=== PATIENT | male | born 1990 | race Caucasian/White ===

== ENCOUNTER 2017-08-17 23:41 | Emergency (ER) | payer SELFPAY ==
--- NOTE | 2017-08-18 01:32 | ER Document Report ---
ED Medical Screen (RME) - General Chief Complaint: Chest Pain Stated Complaint: CHEST PAIN Time Seen by Provider: 08/18/17 01:30 Mode of Arrival: Ambulatory Information source: Patient Notes: Patient is a 27-year-old male who presents to the ER today for 3 days of right chest pain, worse with deep breathing. Patient states it is gotten worse he feels like he can only take shallow breaths. He has no history of asthma, cardiac disease. He denies any nausea or vomiting. TRAVEL OUTSIDE OF THE [place] IN LAST 30 DAYS: No - Related Data Allergies/Adverse Reactions: No Known Allergies Allergy (Verified 11/01/15 12:53) Past Medical History - General Information source: Patient - Immunizations Immunizations up to date: Yes Hx Diphtheria, Pertussis, Tetanus Vaccination: No Review of Systems - Review of Systems Cardiovascular: See HPI Respiratory: See HPI Physical Exam - Vital signs Vitals: Temp Pulse Resp BP Pulse Ox 97.9 F 76 18 156/90 H 97 08/17/17 23:43 08/17/17 23:43 08/17/17 23:43 08/17/17 23:43 08/17/17 23:43 - Notes Notes: PHYSICAL EXAMINATION: GENERAL: Well-appearing and in no acute distress. LUNGS: CTAB and equal. No wheezes rales or rhonchi. HEART: Regular rate and rhythm without murmurs Course - Vital Signs Vital signs: Temp Pulse Resp BP Pulse Ox 97.9 F 76 18 156/90 H 97 08/17/17 23:43 08/17/17 23:43 08/17/17 23:43 08/17/17 23:43 08/17/17 23:43
[2017-08-18 02:09] LABS: ABSOLUTE BASOPHILS # (AUTO) 0.1 10^3/uL (0.0-0.2); ABSOLUTE EOSINOPHILS # (AUTO) 0.6 10^3/uL (0.0-0.6); ABSOLUTE LYMPHOCYTES (AUTO) 2.6 10^3/uL (0.5-4.7); ABSOLUTE MONOCYTES (AUTO) 0.8 10^3/uL (0.1-1.4); ABSOLUTE NEUT (AUTO) 4.5 10^3/uL (1.7-8.2); BASOPHILS % (AUTO) 0.8 % (0-2); EOSINOPHILS % (AUTO) 7.4 % (0-6); HEMATOCRIT 43.3 % (37.9-51.0); HEMOGLOBIN 14.9 g/dL (13.5-17.0); LYMPHOCYTES % (AUTO) 30.4 % (13-45); MEAN CORPUSCULAR HGB CONC 34.5 g/dL (32.0-36.0); MEAN CORPUSCULAR VOLUME 90 fl (80-97); MONOCYTES % (AUTO) 9.7 % (3-13); PLATELET COUNT 270 10^3/uL (150-450); RED BLOOD COUNT 4.82 10^6/uL (4.35-5.55); RED CELL DISTRIBUTION WIDTH 13.4 % (11.5-14.0); SEGMENTED NEUTROPHILS % (AUTO) 51.7 % (42-78); TOTAL CELLS COUNTED % (AUTO) 100 %; WHITE BLOOD COUNT 8.6 10^3/uL (4.0-10.5)
--- NOTE | 2017-08-18 02:13 | RADIOLOGY REPORT (SQ) ---
EXAM DESCRIPTION: CHEST PA/LAT COMPLETED DATE/TIME: 08/18/2017 2:00 am REASON FOR STUDY: right side cp, worse with deep breathing COMPARISON: None. EXAM PARAMETERS: NUMBER OF VIEWS: two views TECHNIQUE: Digital Frontal and Lateral radiographic views of the chest acquired. RADIATION DOSE: NA LIMITATIONS: none FINDINGS: LUNGS AND PLEURA: Subsegmental atelectasis at the left lung base. No pleural effusion or pneumothorax. MEDIASTINUM AND HILAR STRUCTURES: No masses or contour abnormalities. HEART AND VASCULAR STRUCTURES: Heart normal size. No evidence for failure. BONES: No acute findings. HARDWARE: None in the chest. IMPRESSION: Subsegmental atelectasis at the left lung base. TECHNICAL DOCUMENTATION: JOB ID: [id number] [employer]- All Rights Reserved
[2017-08-18] MEDS ORDERED: LIDOCAINE 5% (700 MG) TRANSDERMAL ADH..PATCH TP ONE (02:28)
--- NOTE | 2017-08-18 02:29 | ER Document Report ---
ED General - General Chief Complaint: Chest Pain Stated Complaint: CHEST PAIN Time Seen by Provider: 08/18/17 01:30 Mode of Arrival: Ambulatory Notes: Patient is a 27-year-old male without past medical history, no prior DVT or pulmonary embolus history, no history of clotting disorders who presents with 3- 4 days of right-sided pleuritic chest wall pain with associated shortness of breath. Patient describes as a stabbing, aching pain to the right costophrenic angle worsened with deep inspiration, improved by hunching over or taking shallow breaths. No history of similar symptoms in the past. He states that he also feels somewhat short of breath, worsened by exertion. He denies any radiation of the pain, associated vomiting or diaphoresis. No known trauma to the area. He has not seen his general doctor regarding today's concerns. No use of supplemental estrogen. No history of malignancy. No fever or constitutional symptoms. TRAVEL OUTSIDE OF THE [place] IN LAST 30 DAYS: No - Related Data Allergies/Adverse Reactions: No Known Allergies Allergy (Verified 11/01/15 12:53) Past Medical History - General Information source: Patient - Social History Smoking Status: Never Smoker Chew tobacco use (# tins/day): No Frequency of alcohol use: None Drug Abuse: None Lives with: Family Family History: Reviewed & Not Pertinent Patient has suicidal ideation: No Patient has homicidal ideation: No Renal/ Medical History: Denies: Hx Peritoneal Dialysis - Immunizations Immunizations up to date: Yes Hx Diphtheria, Pertussis, Tetanus Vaccination: No Review of Systems - Review of Systems Notes: Constitutional: Negative for fever. HENT: Negative for sore throat. Eyes: Negative for visual changes. Cardiovascular: Positive for chest pain. Respiratory: Positive for shortness of breath. Gastrointestinal: Negative for abdominal pain, vomiting or diarrhea. Genitourinary: Negative for dysuria. Musculoskeletal: Negative for back pain. Skin: Negative for rash. Neurological: Negative for headaches, weakness or numbness. 10 point ROS negative except as marked above and in HPI. Physical Exam - Vital signs Vitals: Temp Pulse Resp BP Pulse Ox 97.9 F 76 18 156/90 H 97 08/17/17 23:43 08/17/17 23:43 08/17/17 23:43 08/17/17 23:43 08/17/17 23:43 Interpretation: Hypertensive Notes: PHYSICAL EXAMINATION: GENERAL: Well-appearing, well-nourished and in no acute distress. HEAD: Atraumatic, normocephalic. EYES: Pupils equal round and reactive to light, extraocular movements intact, sclera anicteric, conjunctiva are normal. ENT: nares patent, oropharynx clear without exudates. Moist mucous membranes. NECK: Normal range of motion, supple without lymphadenopathy LUNGS: Breath sounds clear to auscultation bilaterally and equal. No wheezes rales or rhonchi. HEART: Regular rate and rhythm without murmurs Chest wall: Pain on palpation of the right lower ribs ABDOMEN: Soft, nontender, normoactive bowel sounds. No guarding, no rebound. No masses appreciated. EXTREMITIES: Normal range of motion, no pitting or edema. No cyanosis. NEUROLOGICAL: No focal neurological deficits. Moves all extremities spontaneously and on command. PSYCH: Normal mood, normal affect. SKIN: Warm, Dry, normal turgor, no rashes or lesions noted. Course - Re-evaluation Re-evalutation: 08/18/17 02:27 Patient presents with pleuritic pain on the right with associated subjective of breath but also has no acute vital sign abnormalities. He is PERC criteria negative, although I do have a slightly higher than 50% pretest probability for possible acute pulmonary embolus. A d-dimer has been sent from triage. If this negative will not proceed with CTA. Patient is in agreement with this. EKG otherwise unremarkable without any ischemic changes. Bedside echocardiogram does not show any evidence of pericardial effusion or regional wall motion abnormality. Chest x-ray without any evidence of a pneumothorax, mediastinal air or widened mediastinum. 08/18/17 03:08 D-dimer is normal. LFTs do show mild elevation of ALT which is nonspecific, may be secondary to steatohepatitis is although on reexamination patient has no focal right upper quadrant abdominal tenderness or clinical history to suggest a biliary pathology. I have inserted the patient have a recheck of these labs within the next 1 week with his primary care physician. At this time will discharge with return precautions and follow-up recommendations. Verbal discharge instructions given a the bedside and opportunity for questions given. Medication warnings reviewed. Patient is in agreement with this plan and has verbalized understanding of return precautions and the need for primary care follow-up in the next 24-72 hours. - Vital Signs Vital signs: Temp Pulse Resp BP Pulse Ox 98.1 F 72 18 144/83 H 98 08/18/17 03:05 08/18/17 03:05 08/18/17 03:05 08/18/17 03:05 08/18/17 03:05 - Laboratory Result Diagrams: 08/18/17 01:49 08/18/17 01:49 Laboratory results interpreted by me: 08/18/17 08/18/17 01:49 01:49 Eosinophils % 7.4 H Total Bilirubin 0.1 L ALT 195 H - Diagnostic Test Radiology reviewed: Image reviewed, Reports reviewed Radiology results interpreted by me: 08/18/17 02:28 Chest x-ray: No acute infiltrate or pneumothorax - EKG Interpretation by Me Additional EKG results interpreted by me: 08/18/17 02:29 Normal sinus rhythm. Rate 73. No ST elevations or depressions. QTC is 397. Discharge - Discharge Clinical Impression: Pleurodynia, Shortness of breath, Transaminitis Condition: Good Disposition: HOME, SELF-CARE Additional Instructions: Your labs and chest xray are reassuring today and do not suggest a pulmonary embolus. Your liver functions are slightly elevated, and may be secondary to your obesity. Please have them rechecked within the next 1-2 weeks. This is not a cause for serious alarm but we need to verify they are not worsening. Return if you have worsening or shortness of breath, pass out, have worsening of your pain, or have any other symptoms that are worrisome to you. For your pain: Take ibuprofen 600 mg and acetaminophen 1000 mg every 6 hours together as needed for pain. Apply heat to the affected area as needed. Forms: Return to Work
[2017-08-18 02:33] LABS: ALANINE AMINOTRANSFERASE 195 U/L (21-72); ALBUMIN 4.9 g/dL (3.5-5.0); ALKALINE PHOSPHATASE 41 U/L (38-126); ANION GAP 12 (5-19); ASPARTATE AMINO TRANSFERASE 56 U/L (17-59); BILIRUBIN,DIRECT 0.1 mg/dL (0.0-0.4); BILIRUBIN,TOTAL 0.1 mg/dL (0.2-1.3); BLOOD UREA NITROGEN 16 mg/dL (7-20); CALCIUM 10.2 mg/dL (8.4-10.2); CARBON DIOXIDE 28 mmol/L (22-30); CHLORIDE 104 mmol/L (98-107); GLUCOSE 95 mg/dL (75-110); POTASSIUM 4.8 mmol/L (3.6-5.0); SODIUM 143.7 mmol/L (137-145); TOTAL PROTEIN 7.4 g/dL (6.3-8.2)
[2017-08-18 03:05] VITALS: BP 144/83
--- NOTE | 2017-08-18 08:54 | EKG REPORT ---
SEVERITY:- ABNORMAL ECG - SINUS RHYTHM PROBABLE LEFT ATRIAL ABNORMALITY LEFT VENTRICULAR HYPERTROPHY : Confirmed by: Rubens Rollins MD 18-Aug-2017 08:53:36
== END 2017-08-18 03:07 | disposition home or self-care (01) ==
LOC: ER 23:41
DX: R07.81 Pleurodynia (principal); R06.02 Shortness of breath; R74.0 Nonspecific elevation of levels of transaminase and lactic acid dehydrogenase [LDH]
CPT/HCPCS: 36415; 71046; 80053; 85025; 85379; 93005; 93010; 99285

== ENCOUNTER 2018-03-15 21:03 | Emergency (ER) | payer SELFPAY ==
[2018-03-15] MEDS ORDERED: NORMAL SALINE 1000 ML 1,000 ML IV ONE (22:46)
--- NOTE | 2018-03-15 22:46 | ER Document Report ---
ED Medical Screen (RME) - General Chief Complaint: Epigastric Pain Stated Complaint: CHEST PAIN/SHORT OF BREATH Time Seen by Provider: 03/15/18 22:38 Mode of Arrival: Ambulatory Information source: Patient Notes: 28-year-old male complaining of waking up at 1:00 in the morning on Sunday with vomiting multiple times to the point where he was just vomiting up acid which burned his lips and throat and mid chest felt like it was squeezing and tight. He had a little bit of diarrhea. He had some chills and sweats and was in bed for 2 days. When he stands he gets dizzy and feels his heart beating fast some shortness of breath. 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 TRAVEL OUTSIDE OF THE [place] IN LAST 30 DAYS: No - Related Data Allergies/Adverse Reactions: No Known Allergies Allergy (Verified 11/01/15 12:53) Past Medical History Renal/ Medical History: Denies: Hx Peritoneal Dialysis - Immunizations Immunizations up to date: Yes Hx Diphtheria, Pertussis, Tetanus Vaccination: No
[2018-03-15 23:01] LABS: APPEARANCE,URINE CLEAR; BILIRUBIN,URINE NEGATIVE (NEGATIVE); COLOR,URINE YELLOW; GLUCOSE, URINE NEGATIVE (NEGATIVE); KETONES,URINE NEGATIVE (NEGATIVE); LEUKOCYTE ESTERASE,URINE NEGATIVE (NEGATIVE); NITRITE,URINE NEGATIVE (NEGATIVE); PROTEIN,URINE NEGATIVE (NEGATIVE); URINE SPECIFIC GRAVITY 1.018; UROBILINOGEN,URINE NEGATIVE mg/dL (<2.0)
[2018-03-15 23:06] LABS: ABSOLUTE BASOPHILS # (AUTO) 0.1 10^3/uL (0.0-0.2); ABSOLUTE EOSINOPHILS # (AUTO) 0.4 10^3/uL (0.0-0.6); ABSOLUTE LYMPHOCYTES (AUTO) 2.1 10^3/uL (0.5-4.7); ABSOLUTE MONOCYTES (AUTO) 0.9 10^3/uL (0.1-1.4); ABSOLUTE NEUT (AUTO) 5.7 10^3/uL (1.7-8.2); BASOPHILS % (AUTO) 0.6 % (0-2); EOSINOPHILS % (AUTO) 3.9 % (0-6); HEMATOCRIT 47.1 % (37.9-51.0); HEMOGLOBIN 16.1 g/dL (13.5-17.0); LYMPHOCYTES % (AUTO) 22.9 % (13-45); MEAN CORPUSCULAR HEMOGLOBIN 32.3 pg (27.0-33.4); MEAN CORPUSCULAR HGB CONC 34.1 g/dL (32.0-36.0); MEAN CORPUSCULAR VOLUME 95 fl (80-97); PLATELET COUNT 250 10^3/uL (150-450); RED BLOOD COUNT 4.98 10^6/uL (4.35-5.55); SEGMENTED NEUTROPHILS % (AUTO) 62.6 % (42-78); TOTAL CELLS COUNTED % (AUTO) 100 %; WHITE BLOOD COUNT 9.1 10^3/uL (4.0-10.5)
[2018-03-15 23:24] LABS: ALANINE AMINOTRANSFERASE 360 U/L (21-72); ALKALINE PHOSPHATASE 58 U/L (38-126); ANION GAP 13 (5-19); ASPARTATE AMINO TRANSFERASE 142 U/L (17-59); BILIRUBIN,DIRECT 0.3 mg/dL (0.0-0.4); BILIRUBIN,TOTAL 0.7 mg/dL (0.2-1.3); BLOOD UREA NITROGEN 17 mg/dL (7-20); CALCIUM 10.4 mg/dL (8.4-10.2); CARBON DIOXIDE 29 mmol/L (22-30); CHLORIDE 101 mmol/L (98-107); GLUCOSE 96 mg/dL (75-110); LIPASE 140.1 U/L (23-300); POTASSIUM 4.8 mmol/L (3.6-5.0); SODIUM 142.7 mmol/L (137-145); TOTAL PROTEIN 8.2 g/dL (6.3-8.2)
[2018-03-15] MEDS ORDERED: ONDANSETRON HCL INJ/PF 4 MG/2 ML SDV IV ONE (23:43)
[2018-03-15] MEDS ORDERED: MORPHINE SULFATE 10 MG/ML INJ IV PRN (23:43)
[2018-03-15] MEDS ORDERED: KETOROLAC TROMETHAMINE INJ/PF 30 MG/1 ML SDV IV ONE (23:43)
[2018-03-16] MEDS ORDERED: LIDOCAINE 2% VISCOUS SOLN 20 ML UDCUP PO ONE (01:15)
[2018-03-16] MEDS ORDERED: METOCLOPRAMIDE HCL ORAL SOLN 10 MG/10 ML UDCUP PO ONE (01:15)
[2018-03-16] MEDS ORDERED: MAG HYDROX/AL HYDROX/SIMETH SUSP 30 ML UDCUP PO ONE (01:15)
[2018-03-16] MEDS ORDERED: FAMOTIDINE 20 MG TABLET PO ONE (01:15)
--- NOTE | 2018-03-16 01:16 | RADIOLOGY REPORT (SQ) ---
NAME: ACOSTA LAMAR PROCEDURE: US ABDOMEN LIMITED ORDER DATE: 03/15/2018 10:46 PM CDT ACCESSION NUMBER: [id number] Clinical History: vomiting, ruq pain Indication: Same as above Comparison: None . Technique: Peguero scale evaluation of the right upper quadrant of the abdomen was done ultrasonographically along with limited color Doppler evaluation Findings: The gallbladder wall thickness is normal and measures 2.1 mm. There is no visualization of sludge or gallstones in the gallbladder. There is no pericholecystic fluid. There is no ultrasonographically positive Murry's sign. The common duct is nonvisualized. The study is somewhat limited due to patient's body habitus The liver measures 20.4 centimeters in length. There is fatty metamorphosis of the liver There are no focal liver lesions. There is no intrahepatic biliary dilatation. The main portal vein is of normal caliber and shows normal hepatopedal blood flow. The hepatic veins are patent. The pancreas head and body are visualized and appear unremarkable . The right kidney measures 10.5 cm in length. There is no hydronephrosis or nephrolithiasis in the right kidney. There is no documented ascitic fluid in the evaluated right upper quadrant of the abdomen. The visualized portion of the abdominal aorta and the inferior vena cava are unremarkable. There is no documented right-sided pleural effusion. Impression: The common duct is nonvisualized. The study is somewhat limited due to patient's body habitus There is fatty metamorphosis of the liver
--- NOTE | 2018-03-16 01:26 | ER Document Report ---
ED General - General Chief Complaint: Epigastric Pain Stated Complaint: CHEST PAIN/SHORT OF BREATH Time Seen by Provider: 03/15/18 22:38 Mode of Arrival: Ambulatory Notes: Patient is a 28-year-old male without chronic medical problems who presents with 3 days of chest burning, intermittent vomiting, and shortness of breath. The patient states that his symptoms started 3 days ago when he had persistent vomiting "it was so bad it was coming out of my nose". He states that since that time he has had a persistent burning, constant, aching pain in his chest and upper abdomen. He has tried [id number] medications with minimal relief. He notes a history of reflux in the past but nothing this severe. He also notes that he becomes somewhat short of breath with exertion or when standing for prolonged periods of time since this episode. He denies any history of DVT or pulmonary embolus, history of cardiac disease. He has had normal bowel movements. No melena or hematochezia. He has not seen his general doctor regarding today's concerns. He was recently declined for insurance due to LFT abnormalities. TRAVEL OUTSIDE OF THE [place] IN LAST 30 DAYS: No - Related Data Allergies/Adverse Reactions: No Known Allergies Allergy (Verified 11/01/15 12:53) Past Medical History - General Information source: Patient - Social History Smoking Status: Current Some Day Smoker Frequency of alcohol use: Social Drug Abuse: None Lives with: Family Family History: Reviewed & Not Pertinent Patient has suicidal ideation: No Patient has homicidal ideation: No Renal/ Medical History: Denies: Hx Peritoneal Dialysis - Immunizations Immunizations up to date: Yes Hx Diphtheria, Pertussis, Tetanus Vaccination: No Review of Systems - Review of Systems Notes: Constitutional: Negative for fever. HENT: Negative for sore throat. Eyes: Negative for visual changes. Cardiovascular: Positive for chest pain. Respiratory: Positive for shortness of breath. Gastrointestinal: Positive for upper abdominal pain and vomiting Genitourinary: Negative for dysuria. Musculoskeletal: Negative for back pain. Skin: Negative for rash. Neurological: Negative for headaches, weakness or numbness. 10 point ROS negative except as marked above and in HPI. Physical Exam - Vital signs Vitals: Temp Pulse Resp BP Pulse Ox 98.9 F 86 20 154/100 H 99 03/15/18 21:13 03/15/18 21:13 03/15/18 21:13 03/15/18 21:13 03/15/18 21:13 Interpretation: Hypertensive Notes: PHYSICAL EXAMINATION: GENERAL: Well-appearing, well-nourished and in no acute distress. HEAD: Atraumatic, normocephalic. EYES: Pupils equal round and reactive to light, extraocular movements intact, sclera anicteric, conjunctiva are normal. ENT: nares patent, oropharynx clear without exudates. Moist mucous membranes. NECK: Normal range of motion, supple without lymphadenopathy LUNGS: Breath sounds clear to auscultation bilaterally and equal. No wheezes rales or rhonchi. HEART: Regular rate and rhythm without murmurs ABDOMEN: Soft, nontender, normoactive bowel sounds. No guarding, no rebound. No masses appreciated. EXTREMITIES: Normal range of motion, no pitting or edema. No cyanosis. NEUROLOGICAL: No focal neurological deficits. Moves all extremities spontaneously and on command. PSYCH: Normal mood, normal affect. SKIN: Warm, Dry, normal turgor, no rashes or lesions noted. Course - Re-evaluation Re-evalutation: 03/16/18 01:24 Patient presents with epigastric abdominal pain with associated reflux symptoms most consistent with likely gastritis. Patient has no focal abdominal tenderness on examination. Right upper quadrant ultrasound does not demonstrate any evidence of acute cholecystitis or cholelithiasis. Lipase is normal. Patient does have a transaminitis which apparently is chronic as he had outpatient labs done which also noted several months ago. Suspect likely steatohepatitis. Fatty infiltration liver was noted on ultrasound confirming the suspicion. Patient has complained of some associated shortness of breath and a sensation of tightness in his chest since developing the nausea, vomiting and burning in the chest after developing his upper abdominal pain with associated vomiting. His EKG, troponin, and chest x-ray are all unremarkable. He is a PERC criteria negative. The patient has ambulated around the emergency department on pulse oximetry without hypoxia or tachypnea. I suspect that his sensation of shortness of breath while exerting himself or standing is due to ongoing esophageal irritation. Based on history and exam, I do not suspect ACS , pulmonary embolus, SBO, mesenteric ischemia, acute pancreatitis, biliary pathology, or an abdominal aortic dissection. Patient has had improvement of symptoms here with a GI cocktail. At this time will discharge with return precautions and follow-up recommendations. Verbal discharge instructions given a the bedside and opportunity for questions given. Medication warnings reviewed. Patient is in agreement with this plan and has verbalized understanding of return precautions and the need for primary care follow-up in the next 24-72 hours. - Vital Signs Vital signs: Temp Pulse Resp BP Pulse Ox 98.9 F 86 20 153/109 H 98 03/15/18 21:13 03/15/18 21:13 03/15/18 21:13 03/16/18 01:15 03/16/18 01:15 - Laboratory Result Diagrams: 03/15/18 22:50 03/15/18 22:50 Laboratory results interpreted by me: 03/15/18 03/15/18 22:50 22:50 Calcium 10.4 H AST 142 H ALT 360 H Urine Blood SMALL H - Diagnostic Test Radiology reviewed: Image reviewed, Reports reviewed Radiology results interpreted by me: 03/16/18 02:06 Chest x-ray: No acute infiltrate or pneumothorax - EKG Interpretation by Me Additional EKG results interpreted by me: 03/16/18 02:16 Sinus rhythm. Rate 73. No ST elevations or depressions. Flipped T in lead III unchanged from prior. QTC 401. Discharge - Discharge Clinical Impression: Shortness of breath, Fatty liver, Transaminitis Gastritis Qualifiers: Gastritis type: unspecified gastritis Chronicity: acute Gastritis bleeding: presence of bleeding unspecified Qualified Code(s): K29.00 - Acute gastritis without bleeding Nausea and vomiting Qualifiers: Vomiting type: unspecified Vomiting Intractability: non-intractable Qualified Code(s): R11.2 - Nausea with vomiting, unspecified Condition: Good Disposition: HOME, SELF-CARE Additional Instructions: Your symptoms appear to be most consistent with stomach or upper intestinal irritation. Please begin taking famotidine 40 mg in the morning and 40 mg at night. This medicine can be purchased directly [id number]. You may also take medicine such as Pepto-Bismol or Tums to assist with your pain. Please return to emergency department immediately if you have worsening of your pain, shortness of breath, vomiting, become unable to exert yourself due to pain or difficulty breathing, you pass out, or have any pain that radiates into your arms, jaw, or back. Please also return if you have any additional symptoms that are concerning to you. As we have discussed, the most important thing is lifestyle changes. You need to avoid smoking, sodas, tea, coffee, alcohol, spicy foods, and acidic foods such as citrus fruits, tomato based products, berries, and fruit juices. Your chest x-ray, EKG and cardiac markers are all normal. You walked around the emergency department and your oxygen level stayed normal. I suspect that your sensation of shortness of breath is due to esophageal irritation. This should improve with decreased inflammation of the esophagus over the next several days to weeks. You also were noted to have elevated liver enzymes which is due to a fatty infiltration of your liver. As we discussed today, please strongly consider losing weight. Your obesity will result in a shorter life and serious diagnoses including heart attacks, stroke, diabetes, high blood pressure, high cholesterol, kidney failure, and will also result in a much less enjoyable life due to these chronic conditions. Focus on gradual life style changes including removing sugared beverages and processed foods from your diet and at least 30 minutes of moderate activity daily. Try to target 4-5lbs of weight loss per month. Prescriptions: Famotidine 40 mg PO BID #60 tablet Sucralfate [Carafate 1 gm Tablet] 1 gm PO ACHS #120 tablet Forms: Return to Work
--- NOTE | 2018-03-16 03:02 | RADIOLOGY REPORT (SQ) ---
Chest single view on 03/16/2018 at 2:11 AM CLINICAL INDICATION: Shortness of breath COMPARISON: None FINDINGS: The lungs are clear. Cardiac, hilar and mediastinal contours are within normal limits. Pulmonary vascularity is within normal limits. No bony abnormality is noted. IMPRESSION: No active disease.
--- NOTE | 2018-03-16 05:47 | EKG REPORT ---
SEVERITY:- ABNORMAL ECG - SINUS RHYTHM PROBABLE LEFT VENTRICULAR HYPERTROPHY BORDERLINE T ABNORMALITIES, INFERIOR LEADS : Confirmed by: Rubens Rollins MD 16-Mar-2018 05:46:43
[2018-03-16 07:37] VITALS: BP 153/119
== END 2018-03-16 03:00 | disposition home or self-care (01) ==
LOC: ER 21:03
DX: K29.00 Acute gastritis without bleeding (principal); K76.0 Fatty (change of) liver, not elsewhere classified; R74.0 Nonspecific elevation of levels of transaminase and lactic acid dehydrogenase [LDH]; R10.13 Epigastric pain; R07.9 Chest pain, unspecified; R06.02 Shortness of breath
CPT/HCPCS: 93005; 99285; 96361; 96374; 96375; 36415; 83690; 85025; 80053; 81001; 84484; 71045; 76705; 93010; J3490; J1885; J2405; J7030